=== PATIENT | female | born 1995 | race Caucasian/White ===

== ENCOUNTER → 2019-12-23 14:45 | Outpatient (BNVA) | payer OTHER, SELFPAY | PROVIDERS: Family Provider Family Medicine; PCP Family Medicine; Visit Provider Obstetrics & Gynecology | DX: N93.9 Abnormal uterine and vaginal bleeding, unspecified (principal); R10.2 Pelvic and perineal pain; G89.29 Other chronic pain | CPT/HCPCS: 83001; 84146; 84443 ==

== ENCOUNTER → 2019-12-30 13:04 | Outpatient (BNVA) | payer OTHER, SELFPAY | PROVIDERS: Family Provider Family Medicine; PCP Family Medicine; Visit Provider Obstetrics & Gynecology | DX: G89.29 Other chronic pain (principal); R10.2 Pelvic and perineal pain | CPT/HCPCS: 76830; 76856 ==

== ENCOUNTER 2020-01-21 05:50 | Day surgery (SDC) | payer OTHER, SELFPAY ==
[2020-01-19 09:01] VITALS: BMI 29.2
--- NOTE | 2020-01-19 09:12 | ANES.PREANE2 ---
Pre-Anesthetic Assessment Pre-Anesthetic Assessment: Height/Weight: Height 1.63 m Weight 77.111 kg Preop Diagnosis: Pelvic pain Proposed Procedure: Operation Date: 01/21/20 07:00 Proposed Procedures p Laparoscopy Diagnostic(Not Applicable) - Hugh Mendoza MD Familial anesthetic complications: None Social: Social History: No alcohol and No tobacco Exam: Pre-Anes Outpt Exam: alert, oriented x 3, clear to auscultation bilaterally and regular rate & rhythm Airway: Cervical ROM: WNL MP: 2 Dentition: Full and Other Additional comments: permanent Pulmonary: Pulmonary: None reported CV/HEM: Comments: metoprolol for fast heart rate : : None reported Hepatic: Hepatic: None reported GI: GI: GERD Metabolic: Metabolic: None reported Musc/skel: Musc/skel: Fibromyalgia Neuropsych: Neuropsych: HIGHTOWRE and Seizure (Last one september? Unknown etiology, EEG was negative, not sure if actually seizures. Episodes occur in conjunction with pelvic pain (occurs maybe 5 times a year)) Anesthetic Plan: ASA status: 3 Anesthesia: General Risk of > 500 ml blood loss (7ml/kg in children): No PFSH Anesthesia PFSH: Social History (Updated 01/19/20 @ 07:45 by Massiel Dubon RN) Smoking and tobacco status: former smoker Quit status (tobacco): has quit using tobacco Former quit date comment: was social smoker Alcohol intake: current Alcohol intake frequency: holidays/special occasions only Female Reproductive History: Date of last menstrual period: 01/12/20 Data Anesthesia Cardiac Studies: No Data to Display
[2020-01-19 09:45] LABS: OR HCG Qualitative Urine Negative (Negative)
[2020-01-19 09:56] LABS: Add Urine Microscopic? NO
[2020-01-19 10:00] LABS: Basophils % 0.3 %; Eosinophils # 0.3 10^3/uL (0.0-0.8); Eosinophils % 2.4 %; Hematocrit 45.2 % (37.0-47.0); Hemoglobin 14.5 g/dL (11.5-15.3); Lymphocytes # 5.2 10^3/uL (0.8-4.8); Lymphocytes % 47.1 %; Mean Corpuscular HGB Conc 32.1 g/dL (30.0-36.0); Mean Corpuscular Hemoglobin 30.6 pg (28.0-34.0); Mean Corpuscular Volume 95.4 fL (81-99); Mean Platelet Volume 12.2 fL (7.4-10.4); Monocytes % 8.7 %; Neutrophils # 4.5 10^3/uL (1.8-7.7); Neutrophils % 41.2 %; Nucleated Red Blood Cells % 0 %; Platelet Count 263 10^3/cmm (130-400); Red Blood Count 4.74 10^6/uL (4.1-5.3)
[2020-01-19 10:11] LABS: Anion Gap 16.6 (5-19); Blood Urea Nitrogen 8 mg/dL (6-20); Calcium 9.9 mg/dL (8.5-10.5); Carbon Dioxide 23 mmol/L (22-29); Chloride 103 mmol/L (98-107); Glomerular Filtration Rate 120.8 mL/min (90-130); Glucose 100 mg/dL (65-115); Osmolality Calculated 284 mOsm/kg (285-295); Potassium 3.6 mmol/L (3.5-5.1); Sodium 139 mmol/L (136-145)
[2020-01-19 10:28] LABS: Bilirubin Urine Neg (NEGATIVE); Blood Urine Neg (Negative); Glucose Urine UA Norm (Normal); Ketones Urine Negative (Negative); Leukocyte Esterase Urine Negative (Negative); Nitrate Urine Negative (Negative); Protein Urine Neg (Negative); Specific Gravity, Urine 1.005 (1.005-1.030); Urine Appearance Clear (CLEAR); Urine Color Straw (Yellow); Urobilinogen Urine Norm (Negative)
[2020-01-21] VITALS (10 sets, daily range): BP systolic 94–120; BP diastolic 61–85; PULSE 41–89; RESP 16–18; TEMP 36.2–36.7; O2SAT 98–100
--- NOTE | 2020-01-21 06:19 | P.ANESUD_ITS ---
Pre-Anesthetic Update Pre-Anesthetic Assessment: Date of Surgery/Procedure: 01/21/20 Preop Cecy gnosis: Chronic pelvic pain Proposed Procedure: Operation Date: 01/21/20 07:00 Proposed Procedures p Laparoscopy Diagnostic(Not Applicable) - Hugh Mendoza MD Any changes to Pre-Anesthetic Assessment?: No Last Intake: NPO > 8 hrs Labs Last 48hrs: Laboratory Results - last 48 hr 01/19/20 01/19/20 01/19/20 09:29 09:35 09:35 WBC 11.0 H RBC 4.74 Hgb 14.5 Hct 45.2 MCV 95.4 MCH 30.6 MCHC 32.1 RDW 13.0 Plt Count 263 MPV 12.2 H Neut % (Auto) 41.2 Lymph % (Auto) 47.1 Carson % (Auto) 8.7 Eos % (Auto) 2.4 Baso % (Auto) 0.3 Neut # (Auto) 4.5 Lymph # (Auto) 5.2 H Carson # (Auto) 1.0 H Eos # (Auto) 0.3 Baso # (Auto) 0.0 Nucleated RBC % (a uto) 0 Nucleated RBCs # 0.0 Sodium Potassium Chloride Carbon Dioxide Anion Gap BUN Creatinine GFR Calculation Glucose Calculated Osmolal ity Calcium Urine Color Straw Urine Appearance Clear Urine pH 7.0 Ur Specific Gravit y 1.005 Urine Protein Neg Urine Glucose (UA) Norm Urine Ketones Negative Urine Blood Neg Urine Nitrate Negative Urine Bilirubin Neg Urine Urobilinogen Norm Ur Leukocyte Shari ase Negative Urine HCG, Qual Negative Blood Type Rho(D) Type Antibody Screen 01/19/20 01/19/20 09:35 09:35 WBC RBC Hgb Hct MCV MCH MCHC RDW Plt Count MPV Neut % (Auto) Lymph % (Auto) Carson % (Auto) Eos % (Auto) Baso % (Auto) Neut # (Auto) Lymph # (Auto) Carson # (Auto) Eos # (Auto) Baso # (Auto) Nucleated RBC % (a uto) Nucleated RBCs # Sodium 139 Potassium 3.6 Chloride 103 Carbon Dioxide 23 Anion Gap 16.6 BUN 8 Creatinine 0.6 GFR Calculation 120.8 Glucose 100 Calculated Osmolal ity 284 L Calcium 9.9 Urine Color Urine Appearance Urine pH Ur Specific Gravit y Urine Protein Urine Glucose (UA) Urine Ketones Urine Blood Urine Nitrate Urine Bilirubin Urine Urobilinogen Ur Leukocyte Shari ase Urine HCG, Qual Blood Type O Positive Rho(D) Type Positive Antibody Screen Negative Vitals: Temperature 98.1 F 01/21/20 06:11 Temperature Source Temporal Artery S can 01/21/20 06:11 Pulse Rate 89 01/21/20 06:11 Respiratory Rate 18 01/21/20 06:11 Blood Pressure 120/85 01/21/20 06:11 Blood Pressure Perla n 96 01/21/20 06:11 Pulse Oximetry 100 01/21/20 06:11 Oxygen Delivery Me thod 01/21/20 06:11 Exam: Pre-Anes Outpt Exam: alert, oriented x 3, clear to auscultation bilatera lly and regular rate & rhythm Other Pertinent Information: Other Pertinent Information: took metoprolol and keppra this AM with sips of water Cardiac Studies: No Data to Display
[2020-01-21] MEDS: scopolamine 1.5 Patch 1 PATCH TRANSDERMA (06:39)
[2020-01-21] MEDS: sodium chloride 0.9% 1,000 ML 30 ML IV (06:40)
--- NOTE | 2020-01-21 06:43 | W.PM.OPSUD ---
Surgery/Procedure H&P Update DATE OF PROCEDURE: January 21, 2020 DATE H&P PERFORMED: 01/19/20 H&P UPDATE INFORMATION: I have reviewed H&P completed within last 30 days, I have examined patient prior to procedure and No changes to prior documentation PREOP DIAGNOSIS: Chronic pelvic pain PLANNED PROCEDURE: Operation Date: 01/21/20 07:00 Proposed Procedures p Laparoscopy Diagnostic(Not Applicable) - Hugh Mendoza MD
--- NOTE | 2020-01-21 08:05 | P.OP_ITS ---
Operative Report Date of procedure: January 21, 2020 Pre-op Diagnosis: Chronic pelvic pain Post-op diagnosis: same Post-op Findings: normal pelvic organs Procedure Done: diagnostic laparoscopy Pathology: none sent Surgeon: Hugh Mendoza Anesthesia: General Estimated blood loss (mL): 5 IV fluids (mL): 550 Urine output (mL): 50 Complications: vasovagal reaction with severe bradycardia and hypotension after removal of tenaculum from cervix Findings: normal anatomy Condition: stable Disposition: PACU Brief History: 24-year-old female with chronic pelvic pain, and hx of seizures during menses. Procedure: DESCRIPTION OF PROCEDURE: After informed consent, the patient was taken to the operating room where general anesthesia was administered. The patient was examined under anesthesia and found to have a normal uterus with normal adnexa. She was placed in the dorsal lithotomy position and prepped and draped in sterile fashion. Pre- Procedure Time-Out verifying the correct patient identity, correct procedure verified with consent, correct site and side, correct patient position, availability of correct implants and any special equipment or requirements was performed and acknowledge by the OR team. A weighted speculum was placed in the vagina, and the anterior lip of cervix was grasped with the single toothed tenaculum. the cervix was gradually dilated and a uterine sound to 8 cm. A uterine manipulator was advanced into the endocervical. Tenaculum was removed after uterine manipulator was secured. immediately after removing the tenaculum from the cervix the patient showed bradycardia and hypotension. The speculum was removed from the vagina. The procedure was continued after the patient was stabilized. An intraumbilical incision was made with a scalpel. While tenting up on the abdomen, a Verres needle with sleeve was admitted into the intra-abdominal cavity. A saline drop test was performed and noted to be within normal limits. Pneumoperitoneum was attained with 4 liters of carbon dioxide. The Verres needle was removed. A 5 mm trocar and sleeve were admitted into the abdomen and laparoscopic confirmation of location was achieved, A second incision was made 3 cm above the symphysis pubis, and a 5 mm trocar and sleeve were admitted into the abdomen under direct, laparoscopic visualization without complication. A survey revealed normal abdominal anatomy and pelvic survey shows normal uterus, left and right adnexa. A 5 mm blunt probe was advanced through the second trocar sleeve, and light manipulation of ovaries and uterus to assess the posterior aspects was performed. No pathology noted. Carbon dioxide was allowed to escape from the abdomen. The instruments were removed, and skin cover with a bandage. The instruments were removed from the vagina, and excellent hemostasis was noted. The patient tolerated the procedure well, and sponge, lap and needle count were correct times two. The patient taken to the recovery room in good condition.
[2020-01-21 08:18] LABS: OR HCG Qualitative Urine Negative (Negative)
[2020-01-21] MEDS: HYDROcodone-acetaminophen 5-325 mg Tablet 1 TAB PO (08:51)
== END 2020-01-21 09:23 | disposition home or self-care (01) ==
PROVIDERS: Anesthesiology; Family Provider Family Medicine; PCP Family Medicine; Visit Provider Obstetrics & Gynecology
PROC: (CPT 49320; principal; 2020-01-21 07:00)
DX: R10.2 Pelvic and perineal pain (principal); K21.9 Gastro-esophageal reflux disease without esophagitis; M79.7 Fibromyalgia; Z87.891 Personal history of nicotine dependence
CPT/HCPCS: 49320; 12345; 80048; 81003; 81025; 84703; 85025; 86850; 86900; J1100; J1885; J2001; J2405; J2704; J2710; J3010; J3490; J7030

== ENCOUNTER → 2020-01-26 13:30 | Outpatient (BNVA) | payer OTHER, SELFPAY | PROVIDERS: Family Provider Family Medicine; PCP Family Medicine; Visit Provider Specialist | DX: G40.909 Epilepsy, unspecified, not intractable, without status epilepticus (principal); G43.D0 Abdominal migraine, not intractable; R55 Syncope and collapse; Z87.891 Personal history of nicotine dependence | CPT/HCPCS: 99213 ==

== ENCOUNTER → 2020-07-28 14:10 | Outpatient (BNVA) | payer OTHER, SELFPAY | PROVIDERS: Family Provider Family Medicine; PCP Family Medicine; Visit Provider Specialist | DX: R55 Syncope and collapse (principal); Z87.891 Personal history of nicotine dependence | CPT/HCPCS: 99214 ==

== ENCOUNTER → 2020-08-10 16:25 | Outpatient (BNVA) | payer OTHER, SELFPAY | PROVIDERS: Family Provider Family Medicine; PCP Family Medicine; Visit Provider Obstetrics & Gynecology | DX: R10.2 Pelvic and perineal pain (principal); G89.29 Other chronic pain; N80.9 Endometriosis, unspecified | CPT/HCPCS: 76830 ==

== ENCOUNTER → 2020-08-31 13:04 | Outpatient (BNVA) | payer OTHER, SELFPAY | PROVIDERS: Family Provider Family Medicine; PCP Family Medicine; Visit Provider Obstetrics & Gynecology | DX: N80.9 Endometriosis, unspecified (principal) | CPT/HCPCS: 81025 ==